=== PATIENT | male | born 1960 | race Caucasian/White ===

== ENCOUNTER 2025-02-07 08:49 | Day surgery (SDC) | payer MEDICARE, SELFPAY ==
[2025-02-06 10:17] VITALS: BMI 31.1
--- NOTE | 2025-02-06 14:07 | EXP.HP ---
History of Present Illness *Admission Date: 02/07/25 *History of present illness: Mr. Jade is a 64-year-old gentleman who is here for follow-up screening/surveillance colonoscopy secondary to a personal history of adenomatous colon polyps. He did have a colonoscopy in March 2019 at which time he had a single polyp (tubular adenoma) which was removed. He had a colonoscopy in December 2008 that was normal. The examination is deemed medically necessary for screening/surveillance colonoscopy. The patient has been seen, interviewed and examined prior to the procedure by both myself and the anesthesia provider. [facility] Disclaimer: The information contained in this section may have been updated after the patient was seen, as this information can be updated by other users. Medical History Arthritis Hypertension Hyperlipidemia Surgical History Hx of hernia repair History of total right knee replacement Family History Other No significant family history Social History Smoking Status: Never smoker alcohol intake: current substance use type: denies use current occupational status: retired Travel in the last 8 weeks?: None Review of Systems Review of Systems Review of systems (narrative): Negative *Cardiovascular Comments: Negative *Gastrointestinal Comments: Negative *Genitourinary Comments: Negative *Musculoskeletal Comments: Negative *Neurologic Comments: Negative Meds Home Medications and Allergies Home Medications ?Medication ?Instructions ?Recorded ?Confirmed ?Type losartan 25 mg tablet 25 mg PO DAILY 02/06/25 02/07/25 History simvastatin 40 mg tablet 40 mg PO DAILY 02/06/25 02/07/25 History aspirin 81 mg chewable tablet 81 mg PO DAILY 02/07/25 02/07/25 History multivitamin 1 tab PO DAILY 02/07/25 02/07/25 History New Prescriptions to Start Prescriptions: Allergies Allergy/AdvReac Type Severity Reaction Status Date / Time No Known Allergies Allergy Verified 02/07/25 10:07 Exam Data for Last 24 hours I & O for Last 24 hours: Intake & Output 02/03/25 02/04/25 02/05/25 02/06/25 23:59 23:59 23:59 23:59 Weight 230 lb *Routine HEENT Exam Head: Present normocephalic Eye: Present EOMI and PERRL ENT: Present mucous membranes moist *Routine Neck Exam Neck: Present supple *Routine Respiratory Exam Respiratory: Present CTA bilaterally *Routine Cardiovascular Exam Cardiovascular: Present RRR *Routine Abdominal Exam Abdominal: Present soft and normoactive bowel sounds; Absent tenderness *Routine Rectal Exam Rectal:: deferred *Routine Genitalia Exam Genitalia:: deferred *Routine Extremities Exam Extremities: Absent cyanosis, clubbing or edema *Routine Skin Exam Skin: Present warm; Absent rash *Routine Neurological Exam Neurological: Present alert and oriented X3 Assessment and Plan *Assessment and plan (1) Personal history of adenomatous and serrated colon polyps: Status: Acute Category: Medical Code(s): Z86.0101 - Personal history of adenomatous and serrated colon polyps Plan A/P: 1. Personal history of adenomatous colon polyps is the preprocedural diagnosis. The patient will be anesthetized/sedated using MAC sedation. The patient has been seen and examined. Cardiac and lung assessment prior to the examination is stable. Proceed with planned screening/surveillance colonoscopy.
[2025-02-07] MEDS: LACTATED RINGERS 1000ML 1,000 ML 50 ML IV (10:07)
[2025-02-07 10:11] VITALS: BP 149/81; PULSE 86; RESP 17; TEMP 36.2; O2SAT 98
--- NOTE | 2025-02-07 10:20 | P.PNANES_ITS ---
[facility] Disclaimer: The information contained in this section may have been updated after the patient was seen, as this information can be updated by other users. Medical History Arthritis Hypertension Hyperlipidemia Surgical History Hx of hernia repair History of total right knee replacement Family History Other No significant family history Social History Smoking Status: Never smoker alcohol intake: current substance use type: denies use current occupational status: retired Travel in the last 8 weeks?: None [facility] [place] Anesthesia Checklist Patient Identification Patient Identification: Arm Band and Verbal (Name & ) Structural Data Admitted From: Home Planned Operative Procedure/s: Colonoscopy Consent for Planned Operative Procedure(s) Verified: Yes Verified Documents: Surgical Consent NPO Status Verified Time NPO: 00:00 Additional verifications Anesthesia Reactions: No Airway Assessment Mallampati Score:: Class II C-Spine Mobility Assessed: Yes TMJ Mobility Assessed: Yes Dentition: Good Dentition Neurological Assessment Level of Consciousness: Awake, Alert and Appropriate Hx Seizures: No Numbness or tingling in extremities: No Anesthesia Plan Anesthesia Risk discussed: Yes Anesthesia Plan: Verified ASA Class: II Anesthesia Type: MAC
--- NOTE | 2025-02-07 10:29 | P.PCN_ITS ---
[facility] Procedure Note Date: 02/07/25 Time: 10:44 Procedure Note:: Colonoscopy Procedure Report: Colonoscopy with cold snare polypectomy Endoscopist: Urbano Ivory II, MD Referring physician: Chato Monroe MD Date of Procedure: February 07, 2025 Equipment: Olympus [id number] adult colonoscope Sedation: MAC sedation Indication: Mr. Jade is a 64-year-old gentleman who is here for follow-up screening/surveillance colonoscopy secondary to a personal history of adenomatous colon polyps. He did have a colonoscopy in March 2019 at which time he had a single polyp (tubular adenoma) which was removed. He had a colonoscopy in December 2008 that was normal. The patient reports no abdominal pain, weight loss, change in his bowel habits or rectal bleeding. He reports no family history of colon cancer. He does get some postprandial belching. Procedure: Prior to the procedure, a history and physical exam was performed, and patient's medications and allergies were reviewed. The risks, benefits and alternatives of the sedation and procedure were discussed with the patient. All questions were answered and informed consent was obtained. The patient was brought to the procedure room. Patient identification and proposed procedure were verified by the physician and the nurse. The patient was placed in a left lateral decubitus position and the scope was passed under direct vision. Throughout the procedure, the patient's blood pressure, pulse, and oxygen saturations were mo nitored continuously. The colonoscopy was accomplished without difficulty. The patient tolerated the procedure well. Findings: On digital rectal examination there was normal rectal tone. There were no external hemorrhoids. The prostate was 2+, mild to moderately firm but symmetric without nodules. The colonoscope was introduced through the anal canal to the rectum and advanced to the cecum. The ileocecal valve and appendiceal orifice were identified. The scope was advanced a short distance into the ileum which appeared grossly normal. The scope was then withdrawn into the colon. There was a single 2 to 3 mm polyp in the proximal ascending colon removed via cold snare polypectomy. The remaining cecum, ascending and transverse colon and mucosa were grossly normal. There were scattered diverticuli throughout the descending and sigmoid colon (LEFT colon). The rectum itself was normal. Upon retroflexion within the rectum there were grade 1-2 internal hemorrhoids. The preparation was excellent throughout with Preemption Preparation Score of 9. The cecal time was 12 minutes. Impression: 1. Diminutive 2 to 3 mm ascending colon polyp 2. Left-sided diverticulosis 3. Grade 1-2 internal hemorrhoids Plan: I will follow-up the polyp histology and recommend repeat surveillance colonoscopy again in 7 to 10 years. I would encourage psyllium bulking fiber supplementation on a long-term daily maintenance basis.
[2025-02-07 10:46] VITALS: BP 86/66; PULSE 81; RESP 16; TEMP 36.1; O2SAT 96
[2025-02-07 10:56] VITALS: BP 99/72; PULSE 82; RESP 16; O2SAT 99
[2025-02-07 11:06] VITALS: BP 119/79; PULSE 81; RESP 16; O2SAT 99
[2025-02-07 11:16] VITALS: BP 111/79; PULSE 79; RESP 16; O2SAT 99
== END 2025-02-07 11:25 | disposition home or self-care (01) ==
PROVIDERS: PCP Family Medicine; Visit Provider Internal Medicine Gastroenterology
PROC: 0DJD8ZZ Inspection of Lower Intestinal Tract, Via Natural or Artificial Opening Endoscopic (ICD-10-PCS; CPT 45378; principal; 2025-02-07 10:30)
DX: Z12.11 Encounter for screening for malignant neoplasm of colon (principal); D12.2 Benign neoplasm of ascending colon; K57.30 Diverticulosis of large intestine without perforation or abscess without bleeding; K64.0 First degree hemorrhoids; K64.1 Second degree hemorrhoids; Z86.0101 Personal history of adenomatous and serrated colon polyps; M19.90 Unspecified osteoarthritis, unspecified site; E78.5 Hyperlipidemia, unspecified; I10 Essential (primary) hypertension; Z79.82 Long term (current) use of aspirin; Z79.899 Other long term (current) drug therapy
CPT/HCPCS: 45385; J2003; J2704; J7120